=== PATIENT | female | born 1985 | race Caucasian/White ===

== ENCOUNTER 2020-09-20 10:01 | Day surgery (SDC) | payer OTHER, SELFPAY ==
--- NOTE | 2020-09-19 14:54 | HP.PCM_ITS ---
History and Physical Date of Admission: 09/20/20 HPI: The patient is a 35 year old female presenting for pre-operative visit. She is scheduled for?Hysteroscopy D&C?w/polypectomy?for abnormal uterine bleeding and endometrial polyp on?09/20/2020. ??Procedure discussed along with risks, benefits and complications. ?Other alternatives discussed for management. Consent form signed??Yes.? PAST MEDICAL HISTORY PAST MEDICAL HISTORY Diagnosis Date ? Anxiety ? ? GERD (gastroesophageal reflux disease) ? ? H/O breast augmentation ? ? Panic disorder with agoraphobia ? ? Post depression ? ? temporarily on zoloft ? ? PAST SURGICAL HISTORY PAST SURGICAL HISTORY Procedure Laterality Date ? BREAST AUGMENTATION W/PROSTHETIC IMPLANT ? 10/2012 ? [facility], saline augmentation ? EGD ? 09/10/2019 ? [facility], Dr Ramirez ? NOSE SURGERY HX ? 2016 ? TONSILLECTOMY HX ? CURRENT MEDICATIONS Current Outpatient Medications Medication Sig Dispense Refill ? clonazePAM (KLONOPIN) 0.5 mg tablet Take 1 tablet by mouth twice daily as needed for up to 30 days. for anxiety / panic attacks 30 tablet 1 ? norethindrone-e.estradiol-iron (LO LOESTRIN FE) 1 mg-10 mcg (24)/10 mcg (2) Take 1 tablet by mouth once daily. 1 Package 12 ? omeprazole (PRILOSEC) 40 mg capsule Take 1 capsule by mouth once daily. 30 capsule 5 ? fluconazole (DIFLUCAN) 150 mg tablet 1 pill Sunday 09/10 followed by repeat dose at completion of antibiotic. 2 tablet 1 ? No current facility-administered medications for this visit. ? ALLERGIES:?Patient has no known allergies. ? PERSONAL HISTORY:? SOCIAL HISTORY Social History ? Tobacco Use ? Smoking status: Former Smoker ? ? Quit date: 11/24/2009 ? ? Years since quittin.8 ? Smokeless tobacco: Never Used Substance Use Topics ? Alcohol use: Not Currently ? Drug use: No ? FAMILY HISTORY:? FAMILY HISTORY FAMILY HISTORY Problem Relation Age of Onset ? Breast Cancer Paternal Aunt 48 ? Breast Cancer Paternal Aunt 50 ? other (no colon cancer) Other ? ? other (no diabetes) Other ? ? other (no cad) Other ? ? other (multiple myeloma) Mother ?passed at 54 ? REVIEW OF SYMPTOMS: GENERAL: denies fevers or chills ENDOCRINOLOGY: has not been on steroids Cardiology : denies palpitations or chest pain Respiratory: denies SOB or cough Hematology: denies history of prolonged bleeding or easy bruising or VTE Allergy: Denies history of personal or family history of allergy to anesthesia ? ? PHYSICAL EXAMINATION: ? VITALS:?Blood pressure 104/62, weight 142 lb (64.4 kg), last menstrual period 1 10/11/2019. ? GENERAL:??The patient is well nourished, well hydrated in no acute distress. ?, The patient is oriented to time, place, and person. NECK:?Supple. No lynphadenopathy, normal thyroid, no thyromegaly. LUNGS:?Clear to auscultation bilaterally. no wheezes, rhonchi or rales HEART:?Regular rate and rhythm, Normal heart sounds and No murmurs or gallops ? IMPRESSION:?.AUB, endometrial polyp ? PLAN:???The risks/benefits/alternatives and personal involved for the planned?hysteroscopy D&C with possible polypectomy?were reviewed with the patient. Her questions were answered to her satisfaction and she desires to proceed. ?Consent was signed. ?I reviewed with her postop instructions and expectations. ? ? I have reviewed and updated past medical and surgical history, medications and allergies? Procedure Criteria Procedure Type: Elective COVID Risk Discussion: The surgeon/proceduralist and patient have discussed in detail the risk of exposure to and/or potential harm posed by the COVID-19 virus with having a surgery/procedure at this time versus the risk of delaying the surgery/procedure. It is not possible to know either the risk of delaying the surgery or procedure or chance of getting an infection with perfect accuracy, but a joint decision was made between the patient and the surgeon/proceduralist to proceed at this time with the scheduled surgery/procedure as indicated on the consent form.
[2020-09-20] VITALS (9 sets, daily range): BP systolic 89–100; BP diastolic 56–71; PULSE 55–77; RESP 16; TEMP 36.3–37; O2SAT 97–100; BMI 22.0
[2020-09-20] MEDS: Celecoxib 200 MG Capsule PO (07:00)
[2020-09-20] MEDS: Acetaminophen 500 MG Tablet 1000 MG PO (07:00)
[2020-09-20 11:04] LABS: Hematocrit 36.9 % (37-47); Hemoglobin 12.4 g/dL (12.0-15.0); Mean Corp Hgb Conc 33.6 g/dL (32-36); Mean Corpuscular Hgb 29.3 pg (27.0-32.0); Mean Corpuscular Volume 87.2 fL (81-99); Mean Platelet Vol. 9.7 fl (6.2-12.0); Platelet Count 286 K/mm3 (150-450); RBC Distribution Width CV 11.1 % (11.6-14.6); RBC Distribution Width SD 35.6 fl (35.1-43.9); Red Blood Count 4.23 M/mm3 (4.2-5.4); White Blood Count 4.7 K/mm3 (4.4-11.0)
[2020-09-20 11:10] LABS: Internal QC Validated? YES +Cl - CLEAR BKGD; Pregnancy, Urine Negative Negative
[2020-09-20] MEDS: Lactated Ringers 1,000 ML 70 ML IV (11:37)
--- NOTE | 2020-09-20 12:00 | EMB_PTH ---
PATIENT: MARIE BLACK LOC: [facility] U#:[id number] AGE/SX: 35/F ROOM: RE09/20/[address]: Dr. Masha Horton MD : 1985 BED: DIS: 09/20/2020 SPEC #: [id number] RECD: 09/20/20 13:13 STATUS: CHANTELLE TAE #: [id number] ULISES: 09/20/20 12:[address]: Masha Horton DEPT: SURGICAL PATHOLOGY RECD BY: Lupe Nguyen Tissues: Endometrium, NOS Procedures: Surgery Specimen Level IV HEADER OPERATION: Cystoscopy, D & C Symphion, polyp resection PRE-OP DIAGNOSIS: Abnormal uterine bleeding, endometrial polyp TISSUE SUBMITTED: Endometrial curettings and polyp MICROSCOPIC DIAGNOSIS Endometrial polyp and curettings: Polypoid fragments of proliferative endometrium with focal cystic change. Focal changes suggestive of adenomyosis. AM:anjel 09/22/2020 MICROSCOPIC DESCRIPTION Slides are reviewed. GROSS DESCRIPTION Received in fixative is one container labeled with the patient's name and designated endometrial curettings and polyp. The specimen consists of multiple irregular fragments of light lu soft tissue that in aggregate measure 5 x 3 x 0.2 cm. The specimen is totally submitted in two cassettes. / AM:anjel 09/21/20 TC:5 CPT: 12809
[2020-09-20] MEDS: Lidocaine 1% (20 ml mdv) 20 ML Vial (12:35)
--- NOTE | 2020-09-20 12:50 | DCINST_ITS ---
Discharge Diet: No Restrictions Discharge Activity: Return to Normal Activity, May Shower, May Take a Tub Bath - in 1 weeks. Return to work on:: 09/22/20 May shower in (days): 1 May resume sexual activity in: 1 week Call your doctor if your incision/area has: Sudden Increased Bleeding, Foul Smelling Discharge Call your doctor if you observe: Fever of 101 or Higher, Using more than one pad per hour - for 2 hrs pawan [address] Additional Instructions: alternate 400-600 mg of ibuprofen every 6 hrs as needed with 1000 mg of acetaminophen every 8 hrs for pain. Use heat or ice packs as needed for pain Allergies/Adverse Reactions: Allergies No Known Allergies Allergy (Verified 09/20/20 11:11) Medications to take at Discharge Amoxicillin/Potassium Clav [Augmentin 500-125 Tablet] 1 ea PO BID 09/16/20 Ascorbic Acid [Vitamin C] 500 mg PO DAILY@0800 09/16/20 Cholecalciferol (Vitamin D3) [Vitamin D3] 2,000 unit PO DAILY 09/16/20 Clonazepam [Klonopin] 0.5 mg PO PRN PRN 09/16/20 Norethindrone-E.estradiol-Iron [Loestrin Fe 1-20 Tablet] 1 ea PO DAILY 09/16/20 Vitamin B Complex 1 ea PO DAILY 09/16/20 Zinc 50 mg PO DAILY 09/16/20 Primary Care Physician: SHEEBA VALERO [Other] Test Results: Test results from this visit will be discussed in further detail at your follow- up appointment, if applicable. Please Follow Up With: Masha Horton MD - [phone] When: 8-10 weeks or as needed
--- NOTE | 2020-09-20 12:53 | PCM.OPRPT ---
Report of Operation Date of Procedure: 09/20/20 Pre-Operative Diagnosis: abnormal uterine bleeding, endometrial polyp Post-Operative Diagnosis: same Surgery/Procedure Performed:: hysteroscopy D&C with endometrial polyp resection Description of Surgical Findings:: normal cervix, normal vagina, normal lush endometrium other than small polyp in lower uterine segment electronic commerce specialist: None Type of Anesthesia:: MAC/Supplemental/Local Anesthesiologist: Kendra Zamorano Special Medications: none Specimen's removed: endometrial curettings and polyp Drains: none Estimated Blood Loss (mL): 5cc Fluids Replaced: 500cc Description of Procedure: The patient was taken to the OR where she was prepped and draped in dorsal lithotomy position. The weighted speculum was placed in the vagina and the anterior lip of the cervix was grasped with a single-tooth tenaculum. A paracervical block was administered with 1% lidocaine solution. The cervix was dilated serially with Hegar dilators. The Symphion hysteroscope was placed into the uterine cavity and the above findings were noted. Bilateral tubal ostia [were] identified. The Symphion resection device was readied and inserted. A brief visual curettage of the endometrial cavity was performed and the endometrial polyp was removed in its entirety. The instruments were removed from the vagina. There is a small amount of bleeding from the ectocervix. Bovie cauterization was used to obtain hemostasis. The specimen was handed off and sent to pathology. All sponge and needle counts were correct. Vaginal sweep was performed by me. The patient was awakened and taken to the recovery room in stable condition. Hysteroscopic deficit was calculated to be 350 cc of normal saline Start time:1232 STop Time:1246 Grafts/Implants Used: none - Complications none - Admit VTE Documentation VTE Present on Admission: No VTE Mechan Device Prophylaxis: SCD's VTE Pharm Prophylaxis ordered?: No Reason prophylaxis not ordered:: Procedure Not Indicated
[2020-09-20] MEDS: HYDROcodone Bitartrate/Apap 5/325 Tablet PO (13:57)
== END 2020-09-20 15:00 | disposition home or self-care (01) ==
LOC: SDC 10:03 → AC 10:04
PROVIDERS: Anesthesiology; Referring Provider Obstetrics & Gynecology; Visit Provider Obstetrics & Gynecology
PROC: 0UB98ZZ Excision of Uterus, Via Natural or Artificial Opening Endoscopic (ICD-10-PCS; CPT 58558; principal; 2020-09-20 11:45)
DX: N93.9 Abnormal uterine and vaginal bleeding, unspecified (principal); N84.0 Polyp of corpus uteri; K21.9 Gastro-esophageal reflux disease without esophagitis; F41.9 Anxiety disorder, unspecified; Z79.899 Other long term (current) drug therapy; Z87.891 Personal history of nicotine dependence; Z20.822 Contact with and (suspected) exposure to COVID-19
CPT/HCPCS: 00952; 58558; 81025; 85027; 87426; 88305; J7120; J2405